=== PATIENT | male | born 1965 | race Caucasian/White ===

== ENCOUNTER 2023-06-24 16:01 | Emergency (ER) | payer OTHER, SELFPAY ==
[2023-06-24 16:06] VITALS: BP 163/92; PULSE 74; RESP 16; TEMP 36.8; O2SAT 97; BMI 25.7
--- NOTE | 2023-06-24 16:38 | ED_ITS ---
HPI - Eye Problem General Chief complaint: Eye Problems Stated complaint: Scratch on right eye Time Seen by Provider: 06/24/23 16:06 History of Present Illness HPI Narrative: This 57-year-old male comes in reporting right eye pain. He was working out in the [employer] and states that some stick or what object scratched him across the cornea of the right eye. He has excessive tearing but no other discharge. He does not report any other injury. He did use a eyedrop prior to arrival to get the read out. He also took oxycodone prior to arrival without much relief. Related Data Allergies Allergy/AdvReac Type Severity Reaction Status Date / Time No Known Drug Allergies Allergy Verified 06/24/23 16:09 Review of Systems Status of ROS: Reports: 10 or more systems reviewed and unremarkable except as noted in History and below Narrative: Constitutional: No fevers, no weight gain or loss. Eyes: No vision changes. Excessive tearing. No purulent discharge. HENT: No congestion, no sore throat, no ear pain. Cardiovascular: No chest pain, no palpitations. Respiratory: No shortness of breath, no wheezes, no cough. Gastrointestinal: No abdominal pain, no vomiting, no diarrhea. Genitourinary: No dysuria, no hematuria. Musculoskeletal: Normal range of motion. Skin: No rashes, no pruritis. Neurological: No dizziness, weakness, sensory change, speech change. Endo/Heme/Allergies: No bruising or bleeding. No polydipsia. Pysch: no suicidality, no anxiety, no insomnia. All other systems reviewed and are negative. [facility] Social History Smoking Status: Never smoker Exam Narrative: Exam Narrative: Constitutional: Well-developed, well-nourished, no acute distress. HEENT: Normocephalic, atraumatic. Right eye has excessive tearing. Examination with magnification shows no evidence of foreign object. There is small evidence of corneal abrasion. After anesthesia with tetracaine I did also observed with fluorescein dye and black light illumination. Neck: Normal range of motion. Nontender. Supple. Heart: Intact distal pulses. Lungs: No chest discomfort. No wheezes, rhonchi, or rales. Abdomen: Nontender. Back: Normal range of motion. Extremities: Normal range of motion. No injury. Skin: Intact. No rash. Warm. No erythema or pallor. Neurologic: No altered sensation. No weakness. Alert and oriented. Psychiatric: No suicidality. No anxiety or depression. No insomnia. Nursing notes and vitals signs are reviewed. Const: Vital Signs, click to edit/add: Vital Signs - 24 hr 06/24/23 16:06 Temperature 98.2 F Pulse Rate [Right Pulse Oximeter] 74 Respiratory Rate 16 Blood Pressure [Ri ght Upper Arm] 163/92 H Pulse Oximetry 97 Oxygen Delivery Me thod Room Air Course Vital Signs Vital signs: Initial Vital Signs Temperature 98.2 F 06/24/23 16:06 Temperature Source Temporal Artery Scan 06/24/23 16:06 Pulse Rate 74 06/24/23 16:06 Pulse Rhythm Regular 06/24/23 16:06 Pulse Strength 3+ Normal 06/24/23 16:06 Respiratory Rate 16 06/24/23 16:06 Blood Pressure 163/92 H 06/24/23 16:06 Blood Pressure Mean 115 H 06/24/23 16:06 Blood Pressure Position Sitting 06/24/23 16:06 Pulse Oximetry 97 06/24/23 16:06 Oxygen Delivery Method Room Air 06/24/23 16:06 Vital Signs Temperature 98.2 F 06/24/23 16:06 Pulse Rate 74 06/24/23 16:06 Respiratory Rate 16 06/24/23 16:06 Blood Pressure 163/92 H 06/24/23 16:06 Pulse Oximetry 97 06/24/23 16:06 Oxygen Delivery Method Room Air 06/24/23 16:06 Temperature 98.2 F 06/24/23 16:06 Pulse Rate 74 06/24/23 16:06 Respiratory Rate 16 06/24/23 16:06 Blood Pressure 163/92 H 06/24/23 16:06 Pulse Oximetry 97 06/24/23 16:06 Oxygen Delivery Method Room Air 06/24/23 16:06 MDM - Eye Problem MDM Narrative Medical decision making narrative: This patient comes in with an injury to his right eye. On exam he is showing no evidence of foreign object. There is suspicion of a corneal abrasion. The patient received relief with tetracaine drops for anesthesia. A prescription for flurbiprofen ophthalmic is provided. Discharge Plan Discharge Clinical Impression: Corneal abrasion Patient Disposition: Home, Self-Care Condition: Stable Additional Instructions: Use medication as needed and directed for symptomatic relief. Follow up with MD return if worsening. Follow Up/Referrals: Curtis Stewart MD [Primary Care Provider] - Stand Alone Forms: Mention Mobile Info Instructions
--- OUTSIDE RECORDS SUMMARY | 2023-06-24 16:38 | XMS_ITS | Encounter Summary ---
Author Name Unknown Organization [place] Address [facility] [place] [address] Care Team Providers Care Returned Telephone Equipment Appraiser Name Role Phone Curtis Stewart MD Primary Care Provider + [phone] Donte Tubbs MD Unavailable [phone] Fadumo Perez Unavailable + [phone] Donte Tubbs MD Unavailable Reason for Visit * Reason Onset Date Comments Appointment 04/15/2020 Pt needs appt re scheduled due to Covid exposure. Encounter Details Date Type Department Care Team (Late st Contact Info) Description 04/15/[address] [facility] [address] [place] [address] Donte Tubbs MD [address] [facility] [address] [place] [address] Appointment (Pt needs appt rescheduled due to Covid exposure.) Social History Tobacco Use Types Packs/Day Years Used Date Smoking Tobacco: Never Smokeless Tobacco: Never Alcohol Use Standard Drinks/Week Comments Yes 0 (1 standard drink = 0.6 oz pur e alcohol) PHQ-2 Answer Date Recorded PHQ-2 Score 0 03/19/2018 Sex and Gender Information Value Date Recorded Sex Assigned at Not on file Gender Identity Not on file Sexual Orientation Not on file documented as of this encounter Miscellaneous Notes * Telephone Encounter - Vargas Singh - 04/15/2020 10:28 AM PLACER MINER [facility] Call Center Phone Message May a detailed message be left on voicemail: yes Reason for Call: Appointment Intake Pt has a covid exposure and is quarantined until 04/29. Dr. Tubbs's next available appt is 05/14, which Pt says is too far out (also he works that day). Pt stated that Dr Tubbs said to work withESTUARDO Mayes to set up appts if necessary outside of listed availability. Please call back to Reschedule. Thanks! Also needs Audiogram rescheduled along with it. Action Taken: Message routed to: [facility] ENT Travel Screening: Not Applicable ER MINER documented in this encounter Plan of Treatment Not on file documented as of this encounter Visit Diagnoses Not on filedocumented in this encounter Care Teams Returned Telephone Equipment Appraiser Relationship Specialty Start Date End Date Curtis Stewart MD PCP - General Family Practice 07/28/12 Donte Tubbs MD [address] [place] [address] Otolaryngology 04/19/20 Fadumo Perez AuD [address] [place] [address] Director Of Counterintelligence Audiology 04/19/20 Donte Tubbs MD [address] [place] [address] Assigned Surgical Provider 05/26/2011/16/21 documented as of this encounter
--- OUTSIDE RECORDS SUMMARY | 2023-06-24 16:38 | XMS_ITS | Clinical Summary ---
Author Name Unknown Organization [facility] Address [place], [place] [address] Care Team Providers Care Regulatory Agency Director Name Role Phone Curtis Stewart MD Primary Care Provider [phone] Colleen Mckeon MD Unavailable [phone] Allergies No known active allergies Medications Medication Sig Dispensed Refills Start Date End Date Status medication order composerIndications: TIARRA (obstructive sleep apnea) HST 04/25/2018 AHI-12; diagnosis obstructive sleep apnea: MRD #1 1 unit 05/02/2018 Active aspirin (ECOTRIN) 81 mg enteric coated tabletIndications:Angelique rivera history of premature coronary artery disease Take 1 tablet by mouth once daily with a meal. 0 06/27/2019 Active atorvastatin (LIPITOR) 40 mg tabletIndications:Ot her hyperlipidemia Take 1 Tablet (40 mg) by mouth at bedtime. 90 Tablet 4 01/19/2023 Active famotidine (PEPCID) 40 mg tabletIndications:Ga stroesophageal reflux disease, unspecified whether esophagitis present Take 1 Tablet (40 mg) by mouth once daily. Take 30 minutes before the evening meal. 90 Tablet 4 01/19/2023 Active lansoprazole (PREVACID) 30 mg capsuleIndications:G astroesophageal reflux disease, unspecified whether esophagitis present Take 1 Capsule (30 mg) by mouth two times daily before meals. 180 Capsule 4 01/19/2023 Active Active Problems Problem Noted Date Diagnosed Date Right shoulder s/p arthrosco pic RCR, SAD, AC resection-9.27.22 by Sammi Dempsey MD 12/06/2021 Tear of right rotator cuff 10/04/2021 Impingement syndrome of right shoulder 2 Elevated coronary artery calcium score 0 Overview: Patient did a coronary calcium score in 2009 and it was zero. Because of his family history of premature coronary artery disease he was placed on Simvastatin 20 mg daily. He has taken this since 2008. His coronary calcium score in 2019 is 19.3 and this puts him in the 53% risk group. Because of this we switched him to Atorvastatin 40 mg daily. Started him back on a baby aspirin and had him increase his aerobic exercise. His diet is good. TIARRA 04/25/2018 AHI-12 HST 05/02/2018 s/p left shoulder arthroscop ic subacromial decompression, rotator cuff repair (2x1), acromioclavicular resection, glenohumeral debridement, open subpectoralis bicep tenodesis on 07/17/[address] Brown 07/27/2017 High grade outer surface tear of the left rotato r cuff 05/23/2017 Biceps tendinitis of left upper extremity 2017 Arthritis of left acromioclavicular joint 2017 Impingement syndrome of shoulder, left 8 Pulmonary nodule 10/20/2016 Overview: 3 mm nodule left lower lobe as of 10/20/2016 Radiologist recommends a follow up CT scan in one year. Risk factors include former smoker quit at age 27. 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 Umbilical hernia 10/20/2016 Overview: Diagnosed incidentally on CT scan 10/2016. Discussed risk and symptoms of incarceration and the fact that if this develops he needs to go to the emergency room. He does not want surgery at this time.10/20/2016 Curtis Stewart MD signed electronically .................... 10/20/2016 GERD (gastroesophageal reflux disease) 3 Overview: EGD 03/2012 reflux Esophageal PH very low according to May study. Patient should be on Protonix 40 mg twice daily for life according to [facility]. Primary symptom of reflux for Julito was cough. Cyst of bone, localized 09/12/2011 History of microdiscectomies 05/01/2011 Benign neoplasm of colon 06/17/2008 Overview: Colonoscopy 06/2008 polyp repeat in 3 years Colonoscopy 04/2022 diverticuli, hemorhoids, repeat in 5 years Other and unspecified hyperlipidemia 04/17/2008 Family history of malignant neoplasm of prostate 04/17/2008 Family history of premature coronary artery dise ase 04/17/2008 PRB (rectal bleeding) 04/17/2008 Encounters Date Type Department Care Team Description 04/20/2023 12:40 PM PLUNGER SCOOP OPERATOR Office Visit [facility] [address] [place] [address] Curtis Stewart MD Sinus Problem (Cold symptoms; on day 6 per Julito/Concerns with possible sinus infection - would like antibiotics) 04/20/2023 Travel 04/20/2023 Nurse Triage [facility] [address] [place] [address] Curtis Stewart MD Sinus Problem from Last 3 Months Immunizations Name Administration Dates Next Due AMB INFLUENZA, IIV4 (AGE=>6M OS) MDV (Flu Clinic Only) 12/10/2017 COVID-19 Vaccine Spikevax (M oderna 50mcg/0.5mL) 12YO+ [id number] Formula PF 01/19/2023 COVID-19 vaccine (Portapure-Bio NTech 30mcg/0.3mL) 12YO+ BIVALENT PF, MDV 02/06/2022 DTaP 08/19/1980 Hepatitis B (Adult) 03/11/1997 Influenza RIV4 (Age 18+ Year s) PRESERV FREE 12/26/2019 Influenza, IIV3 (Age 6-35 mos) 01/17/2011 Influenza, IIV3 (Age >=3 years) 01/11/20 16,12/11/2012,12/29/2011,2010,02/18/2004 Influenza, IIV4 01/19/2023,02/06/2022 Influenza, IIV4 (=>6mos) MDV 12/07/2016 Influenza,CCIIV4 PRESERV FREE 12/25/2020, 019 Measles 06/02/1976 Polio Virus, Unspecified 08/19/1980 Td (Age >=7 Years) 03/11/2000 Tdap 05/01/2018,04/17/2008 Tuberculin (PPD) 12/11/2012,12/29/2011, 1 Zoster (Shingrix-RZV, recombinant) 05/30/2022, Family History Medical History Relation Name Comments Diabetes Brother Type 1 Cancer-prostate Father Heart Disease Father 2001 Hyperlipidemia Father Other Maternal Grandfather Trini on's Other Maternal Grandmother Dementi a; of old age Cancer-breast Mother 2007 Heart Disease Paternal Grandfather a t 76 Other Paternal Grandmother of old age Cancer-prostate Paternal Uncle 1 Cancer-prostate Paternal Uncle 2 Cancer-prostate Paternal Uncle 3 Relation Name Status Comments Brother Father Maternal Grandfather Maternal Grandmother Mother Paternal Grandfather Paternal Grandmother Paternal Uncle 1 Paternal Uncle 2 Paternal Uncle 3 Social History Tobacco Use Types Packs/Day Years Used Date Smoking Tobacco: Former Cigarettes 0.5 8 0 03/12/1985 - 03/12/1993 Cigars Quit: 2015 Smokeless Tobacco: Never Tobacco Cessation:Counseling Given: Not Answered Comments:quit in 1993, Alcohol Use Standard Drinks/Week Comments Yes 8.3 (1 standard drink = 0.6 oz p ure alcohol) occ PHQ-2 Answer Date Recorded PHQ-2 TOTAL SCORE 0 01/19/2023 Social Connections Answer Date Recorded Frequency of Communication with Friends and Fami ly 0 01/19/2023 Alcohol Use Answer Date Recorded How often do you have a drink containing alcohol ? 4 04/20/2023 How many drinks containing a lcohol do you have on a typical day when you are drinking? 0 04/20/2023 How often do you have five or more drinks on one occasion? 0 04/20/2023 Financial Resource Strain Answer Date R ecorded Difficulty of Paying Living Expenses 3 01/19/2023 Difficulty of Paying Living Expenses Not on file 01/19/2023 Food Insecurity Answer Date Recorded Worried About Running Out of Food in the Last Ye ar 1 01/19/2023 Transportation Needs Answer Date Record ed Lack of Transportation (Medical) 1 01/19/2023 Housing Stability Answer Date Recorded Unable to Pay for Housing in the Last Year 1 01/19/2023 Sex and Gender Information Value Date Recorded Sex Assigned at Not on file Gender Identity Not on file Sexual Orientation Not on file Obstetrics History Last Filed Vital Signs Vital Sign Reading Time Taken Comments Blood Pressure 121/82 04/20/2023 12:44 PM PLUNGER SCOOP OPERATOR Pulse 65 04/20/2023 12:44 PM PLUNGER SCOOP OPERATOR Temperature 36.8 ??C (98.2 ??F) 04/20/2023 12:[address] Respiratory Rate 16 05/09/2022 11:13 AM PLUNGER SCOOP OPERATOR Oxygen Saturation 97% 04/20/2023 12:44 PM PLUNGER SCOOP OPERATOR Inhaled Oxygen Concentration - - Weight 98.9 kg (218 lb) 04/20/2023 12:44 PM PLUNGER SCOOP OPERATOR Height 187 cm (6' 1.62) 01/19/2023 10:58 AM PLUNGER SCOOP OPERATOR Body Mass Index 28.28 01/19/2023 10:58 AM PLUNGER SCOOP OPERATOR Plan of Treatment Health Maintenance Due Date Last Done Comments HIV for age 15-65 10/21/1982 Influenza for age 50-64 11/11/2023 01/20/20, 02/06/2022, 12/25/2020, Additional history exists BMI (ht and wt on same day) for age 18+ 01/20/2024 01/19/2023, 11/21/2021, 06/10/2021, Additional history exists Depression screening for age 12+ 01/20/2024 01/19/2023, 11/23/2021, 11/21/2021, Additional history exists Colonoscopy through age 75 05/09/202705/09, 05/09/2022, 06/16/2008 Lipids for age 45-75 01/20/2028 01/19/2023, 11/21/2021, 01/02/2020, Additional history exists Tetanus booster 05/01/2028 05/01/2018, 08/2008, 03/11/2000 Tdap Completed 05/01/2018, 04/17/2008 Hepatitis C screening for age 18-79 Completed 11/21/2021 Zoster (shingles) series for age 50+ Completed 05/30/2022, 02/07/2022 COVID-19 vaccine series Completed 01/20/20, 02/06/2022, 02/16/2021, Additional history exists Pneumococcal series for age 6-64 Aged Out No longer eligible based on patient's age to complete this topic Procedures Procedure Name Priority Date/Time Associated Diagnosis Comments LIPID PANEL W REFLEX MEASURED LDL Routine 01/19/2023 11:55 AM PLUNGER SCOOP OPERATOR Other hyperlipidemia COLONOSCOPY 05/09/2022 9:50 AM PLUNGER SCOOP OPERATOR ANTI HCV Routine 11/21/2021 9:50 AM CDT Encounter for hepatitis C screening test for low risk patient from Last 3 Months or Most Recently Relevant to Health Maintenance Results * LIPID PANEL W REFLEX MEASURED LDL (01/19/2023 11:55 AM PLUNGER SCOOP OPERATOR) CHOLESTEROL,TOTAL 169 100 - 199 mg/dL 01/19/2023 9:32 PM PLUNGER SCOOP OPERATOR [facility] Comment: Cholesterol, Total Reference Ranges Desirable <200 mg/dL Borderline 200-239 mg/dL High >=240 mg/dL TRIGLYCERIDES 75 <150 mg/dL 01/19/2023 9:32 PM PLUNGER SCOOP OPERATOR [facility] [employer] [facility] HDL CHOLESTEROL 72 >40 mg/dL 9:32 PM PLUNGER SCOOP OPERATOR [facility] [employer] [facility] NON-HDL CHOLESTEROL 97 <145 mg/dl 01/19/2023 9:32 PM PLUNGER SCOOP OPERATOR [facility] [employer] [facility] CHOL/HDL RATIO 2.35 <4.50 01/19/2023 9:32 PM PLUNGER SCOOP OPERATOR [facility] [employer] LDL CHOLESTEROL 82 <=130 mg/dL 01/19/2023 9:32 PM PLUNGER SCOOP OPERATOR [facility] VLDL CHOLESTEROL 15 <=30 mg/dL 01/19/2023 9:32 PM PLUNGER SCOOP OPERATOR [facility] [employer] PROVIDER ORDERED STATUS RANDOM 01/19/2023 9:32 PM PLUNGER SCOOP OPERATOR [facility] Blood BLOOD SPECIMEN / Unknown Venipuncture / Unknown 01/19/2023 11:55 AM PLUNGER SCOOP OPERATOR 01/19/2023 11:56 AM PLUNGER SCOOP OPERATOR Curtis Stewart MD CHEMISTRY [facility] [address] [address], [place] * COLONOSCOPY (05/09/2022 9:50 AM PLUNGER SCOOP OPERATOR) 05/09/2022 9:50 AM PLUNGER SCOOP OPERATOR Narrative Transcriptions Dat Corey MD - 05/09/2022 11:04 AM CST Patient Name: Dick Alex Procedure Date: 05/09/2022 Gender: Male Date of : 1965 Admit Type: Outpatient Procedure: Colonoscopy Proceduralist: Dat Corey MD , Alina Sim (Nurse), Lilia Peraza (Nurse) Indications/Pre-Op Diagnosis: High risk colon cancer surveillance:Personal history of sessile serrated colon polyp(less than 10 mm in size) with no dysplasia, Last colonoscopy: July 2008 Medications: Fentanyl 100 micrograms IV, Midazolam 4 mgIV, The level of sedation administered wasmoderate Procedure Description: The patient had risks, benefits and alternatives explained to andgave informed consent. The patient had a stable cardiopulmonary status and judged an adequate candidate for conscious sedation. The [id number] was passed through the anus and advanced to the cecum, identified by appendiceal orifice and ileocecal valve. Thecolonoscopy was performed without difficulty. The patient tolerated the procedure well. The quality of the bowel preparation was good. The ileocecal valve, appendiceal orifice, and rectum were photographed. Complications: No immediate complications. Estimated Blood Loss & Specimen: Estimated blood loss: none. Specimen collected - None Findings: The perianal and digital rectal examinations were normal. Non-bleeding internal hemorrhoids were found during retroflexion. The hemorrhoids were small. Scattered small and large-mouthed diverticula were found in thesigmoid colon and descending colon. The exam was otherwise without abnormality on direct and retroflexion views. Impressions/Post-Op Diagnosis: - Non-bleeding internal hemorrhoids. - Diverticulosis in the sigmoid colon and in the descending colon. - The examination was otherwise normal on direct and retroflexionviews. - No specimens collected. Recommendation: - Patient has a contact number available for emergencies. The signsand symptoms of potential delayed complications were discussed with the patient. Return to normal activities tomorrow. Written discharge instructions were provided to the patient. - Resume previous diet. - Continue present medications. - Repeat colonoscopy in 5 years for surveillance. Moderate Sedation: A time out was performed before the procedure. Moderate (conscious) sedation was administered by the endoscopy nurse and supervised bythe endoscopist. The following parameters were monitored: oxygensaturation, heart rate, blood pressure, EKG, CO2, respiratory rate, adequacy of pulmonary ventilation and reponse to care. Please refer to the patient's medical record flowsheets and nursing notes for moderate sedation details. Total physician intraservice time was 15 minutes. Dat Corey MD 05/09/2022 10:56:34 AM This report has been signed electronically. Note Initiated On: 05/09/2022 9:50 AM Procedure Code(s): --- Professional --- 12216, Colonoscopy, flexible; diagnostic, including collection of specimen(s) bybrushing or washing, when performed (separateprocedure) Diagnosis Code(s): --- Professional --- Z86.010, Personal history of colonicpolyps K64.8, Other hemorrhoids K57.30, Diverticulosis of large intestine without perforation or abscess withoutbleeding CPT copyright 2020 [employer]. All rights reserved. The codes documented in this report are preliminary and upon belt machine operator reviewmay be revised to meet current compliance requirements. Scope In: 10:34:21 AM Scope Withdrawal Time 0 hours 7 minutes 57 seconds Scope Out: 10:46:59 AM Dat Corey MD PROCEDURE ORD * ANTI HCV (11/21/2021 9:50 AM CDT) HEPATITIS C ANTIBODY Non-React dinora Non-React dinora 11/21/2021 6:45 PM CDT [facility] Comment:Antibodies to HCV no t detected; does not exclude the possibility of exposure to HCV. Blood BLOOD SPECIMEN / Unknown Venipuncture / Unknown 11/21/2021 9:50 AM CDT 11/21/2021 9:52 AM CDT Curtis Stewart MD SEND OUTS [facility] [address] [place] [address], from Last 3 Months or Most Recently Relevant to Health Maintenance Care Teams Regulatory Agency Director Relationship Specialty Start Date End Date Curtis Stewart MD [address] [place] [address] PCP - General 09/19/07 Colleen Mckeon MD [address] [place] [address] Pulmonology Pulmonary Medicine 01/16/12
--- OUTSIDE RECORDS SUMMARY | 2023-06-24 16:38 | XMS_ITS | Clinical Summary ---
Author Name Unknown Organization [facility] Address [address] [place] [address] Care Team Providers Care Ship Scraper Name Role Phone Curtis Stewart MD Primary Care Provider [phone]- [phone] Donte Tubbs MD Unavailable Fadumo Perez Unavailable Allergies No known active allergies Medications Medication Sig Dispensed Refills Start Date End Date Status LANSOPRAZOLE PO Active aspirin (ASA) 81 MG EC tablet Take 81 mg by mouth 06/27/2019 Active atorvastatin (LIPITOR) 40 MG tablet Take 40 mg by mouth 01/02/2020 Active famotidine (PEPCID) 20 MG tablet 02/20/2020 Active Active Problems Problem Noted Date Diagnosed Date Facial mass 02/27/2018 Social History Tobacco Use Types Packs/Day Years Used Date Smoking Tobacco: Never Smokeless Tobacco: Never Tobacco Cessation:Counseling Given: No Alcohol Use Standard Drinks/Week Comments Yes 0 (1 standard drink = 0.6 oz pur e alcohol) PHQ-2 Answer Date Recorded PHQ-2 Score 0 05/13/2020 Adolescent Education Answer Date Record ed Getting School Help Needed Not on file 12/18 Sex and Gender Information Value Date Recorded Sex Assigned at Not on file Gender Identity Not on file Sexual Orientation Not on file Last Filed Vital Signs Vital Sign Reading Time Taken Comments Blood Pressure 138/81 05/13/2020 3:06 PM ALCOHOL LAW ENFORCEMENT AGENT Pulse 64 05/13/2020 3:06 PM ALCOHOL LAW ENFORCEMENT AGENT Temperature 36.4 ??C (97.6 ??F) 05/13/2020 3:06 PM CS T Respiratory Rate 13 05/13/2020 3:06 PM ALCOHOL LAW ENFORCEMENT AGENT Oxygen Saturation 98% 05/13/2020 3:06 PM ALCOHOL LAW ENFORCEMENT AGENT Inhaled Oxygen Concentration - - Weight 97 kg (213 lb 13.5 oz) 05/13/2020 3:06 PM ALCOHOL LAW ENFORCEMENT AGENT Height 188 cm (6' 2) 05/13/2020 3:06 PM ALCOHOL LAW ENFORCEMENT AGENT Body Mass Index 27.46 05/13/2020 3:06 PM ALCOHOL LAW ENFORCEMENT AGENT Plan of Treatment Health Maintenance Due Date Last Done Comments ADVANCE CARE PLANNING 1965 ANNUAL REVIEW OF HM ORDERS 1967 CT COLONOGRAPHY 1965 FIT 1965 FLEX SIG 1965 GLUCOSE 1965 LIPID 1965 YEARLY PREVENTIVE VISIT 1965 sDNA (Cologuard) 1965 COLONOSCOPY 10/21/1977 COLORECTAL CANCER SCREENING 10/21/1977 IPV IMMUNIZATION (2 of 3 - 4-dose series) 09/16/1980 08/19/1980 HIV SCREENING 10/21/1982 HEPATITIS C SCREENING 10/21/1985 HEPATITIS B IMMUNIZATION (2 of 3 - 19+ 3-dose series) 04/08/1997 03/11/1997 DTAP/TDAP/TD IMMUNIZATION (3 - Tdap) 03/11/2010 03/11/2000, 08/19/1980 ZOSTER IMMUNIZATION (1 of 2) 10/21/2017 COVID-19 Vaccine (1 - season) 2022 INFLUENZA VACCINE (#1) 2022 , 01/27/2019, 01/11/2016, Additional history exists PHQ-2 (once per calendar year) 2023 05/13/2020, 02/27/2018 HPV IMMUNIZATION Aged Out No longer e ligible based on patient's age to complete this topic MENINGITIS IMMUNIZATION Aged Out No l onger eligible based on patient's age to complete this topic Pneumococcal Vaccine: Pediatrics (0 to 5 Years) and At-Risk Patients (6 to 64 Years) Aged Out No longer eligible based on patient's age to complete this topic RSV MONOCLONAL ANTIBODY Aged Out No l onger eligible based on patient's age to complete this topic Care Teams Ship Scraper Relationship Specialty Start Date End Date Curtis Stewart MD PCP - General Family Practice 07/28/12 Donte Tubbs MD [address] [place] [address] [address] [place] [address] Otolaryngology 04/19/20 Fadumo Perez AuD [address] [place] [address] Train Reservation Clerk Audiology 04/19/20
--- OUTSIDE RECORDS SUMMARY | 2023-06-24 16:38 | XMS_ITS | Encounter Summary ---
Author Name Unknown Organization [facility] Address [facility] [place] [address] Care Team Providers Care Hotel Clerk Name Role Phone Curtis tSewart MD Primary Care Provider + [phone] Donte Tubbs MD Unavailable [phone] Fadumo Perez Unavailable + [phone] Donte Tubbs MD Unavailable Reason for Referral * Audiology (Routine) - Closed Specialty Diagnoses / Procedures Referred By Contac t Referred To Contact Audiology Diagnoses Encounter for hearing test Donte Tubbs MD [address] [place] [id number] Referral ID Status Reason Start Date Expiration Date Visits Re quested Visits Authorized [id number] Closed 04/06/2020 04/06/2021 1 1 Question Answer Services: Audiogram w/ Tymps and Reflexes (comprehensive audiology evaluation) RY SWAGING MACHINE OPERATOR Reason for Visit * Reason Onset Date Comments Appointment 04/06/[address] Tubbs , and audiogram w/tymp Encounter Details Date Type Department Care Team (Late st Contact Info) Description 04/06/2020 Telephone [facility] [address] [place] [address] Donte Tubbs MD [address] [place] [address] [phone] Appointment (for Dr Tubbs, and audiogram w/tymp) Social History Tobacco Use Types Packs/Day Years [...] encounter Miscellaneous Notes * Telephone Encounter - Ellen Florian - 04/06/2020 11:31 AM CST [facility] Phone Message May a detailed message be left on voicemail: yes Reason for Call: Other: Dr. Tubbs would like to see this pt faizan, and advised that Sugey could help the pt. Please call the pt to discuss. Thanks. Action Taken: Message routed to: [facility] [place] Travel Screening: Not Applicable RY SWAGING MACHINE OPERATOR documented in this encounter Plan of Treatment Scheduled Referrals Name Type Priority Associated Diagnoses Orde r Schedule AUDIOLOGY ADULT REFERRAL Referral Routine Encounter for hearing test Expected: 04/06/2020, Expires: 04/06/2021 documented as of this encounter Visit Diagnoses Diagnosis Encounter for hearing test- Primary Other examination of ears and hearing documented in this encounter Care Teams Hotel Clerk Relationship Specialty Start Date End Date Curtis Stewart MD PCP - General Family Practice 07/28/12 Donte Tubbs MD [address] [place] [id number] Otolaryngology 04/19/20 Scruggs-Fadumo Barrios AuD [address] [place] [id number] Site Safety Manager Audiology 04/19/20 Donte Tubbs MD [address] [place] [address] [address] [place], [place] [id number] Assigned Surgical Provider 05/26/2011/16/21 documented as of this encounter
--- OUTSIDE RECORDS SUMMARY | 2023-06-24 16:38 | XMS_ITS | Referral Summary ---
Author Name Unknown Organization [facility] Address [address] [place] [id number] Care Team Providers Care Baker Helper Name Role Phone Curtis Stewart MD Primary Care Provider [phone] Donte Tubbs MD Unavailable Fadumo Perez Unavailable [...] Comments Blood Pressure 138/81 05/13/2020 3:06 PM BRANCH LIBRARY CLERK Pulse 64 05/13/2020 3:06 PM BRANCH LIBRARY CLERK Temperature 36.4 ??C (97.6 ??F) 05/13/2020 3:06 PM CS T Respiratory Rate 13 05/13/2020 3:06 PM BRANCH LIBRARY CLERK Oxygen Saturation 98% 05/13/2020 3:06 PM BRANCH LIBRARY CLERK Inhaled Oxygen Concentration - - Weight 97 kg (213 lb 13.5 oz) 05/13/2020 3:06 PM BRANCH LIBRARY CLERK Height 188 cm (6' 2) 05/13/2020 3:06 PM BRANCH LIBRARY CLERK Body Mass Index 27.46 05/13/2020 3:06 PM BRANCH LIBRARY CLERK Plan of Treatment Not on file Care Teams Baker Helper Relationship Specialty Start Date End Date Curtis Stewart MD PCP - General Family Practice 07/28/12 Donte Tubbs MD [address] [phone] Otolaryngology 04/19/20 Fadumo Perez AuD [address] [address] Field Superintendent Audiology 04/19/20
--- OUTSIDE RECORDS SUMMARY | 2023-06-24 16:38 | XMS_ITS | Continuity of Care Document ---
Author Name Unknown Organization [facility] Address [address] [address] [place] [address] Phone Care Team Providers Care Tanner Rotary Drum Continuous Process Name Role Phone Unavailable Unavailable Unavailable Advance Directives Directive Yes / No Effective Date File Name No Information Encounters Encounter Description Practice Location Reason(s) For Visit Diagnoses Date Provider Providers Copied on Encounter [facility], [address] [address], [place], [place], [id number], [place] tel:[phone] [facility] No Information 3 No Information Referring Provider: Referral Self, USE FOR SELF REFERRALS. Family History Family Member Type Diagnosis Age At Onset No Information Payers Payer name Insurance type Covered green party ID Authoriza tion(s) No Information Social History Type Description Quantity Date Captured Comments Sex Male Smoking Status No Information Chief Complaint And Reason For Visit No Information Reason For Referral Reason For Referral No Information History Of Present Illness Encounter Date Complaint History Of Prese nt Illness No Information Functional Status Date Functional Assessmen t No Information Instructions Date Instruction Additional Infor mation No Information Assessments Type Assessment Date No Information Patient Care Teams Name Effective Dates (start - stop) Status Members No Information
--- OUTSIDE RECORDS SUMMARY | 2023-06-24 16:38 | XMS_ITS | Continuity of Care Document ---
Author Name Unknown Organization [facility] Address [address] [address] [place] [address] Phone Care Team Providers Care Animal Treatment Investigator Name Role Phone Unavailable Unavailable Unavailable Advance Directives Directive Yes / No Effective Date File Name No Information Encounters Encounter Description Practice Location Reason(s) For Visit Diagnoses Date Provider Providers Copied on Encounter [facility], [address] [address], [place], [place], [id number], [place] tel:[phone] [facility] No Information 3 No Information Referring Provider: Referral Self, USE FOR SELF REFERRALS. Family History Family Member Type Diagnosis Age At Onset No Information Payers Payer name Insurance type Covered republican ID Authoriza tion(s) No Information Social History [...]
== END 2023-06-24 16:50 | disposition home or self-care (01) ==
PROVIDERS: Emergency Provider Emergency Medicine Emergency Medical Services; PCP Family Medicine
DX: S05.01XA Injury of conjunctiva and corneal abrasion without foreign body, right eye, initial encounter (principal); Y93.H2 Activity, gardening and landscaping
CPT/HCPCS: 99283; 99284; A9270